=== PATIENT | female | born 1980 | race Caucasian/White ===

== ENCOUNTER 2023-06-10 17:07 | Emergency (ER) | payer OTHER ==
[2023-06-10 17:30] VITALS: TEMP 98.6; BMI 21.6
[2023-06-10 22:00] LABS: BASO % 0.6 % (0-2.0); EOS % 2.1 % (0-4.5); HEMATOCRIT 37.5 % (32.4-45.2); HEMOGLOBIN 12.7 GM/dL (10.7-15.3); LYMPH % 34.4 % (8-40); MCH 31.5 pg (25.7-33.7); MCHC 33.8 g/dl (32.0-36.0); MEAN PLT VOLUME 8.6 fl (7.5-11.1); MONO % 7.6 % (3.8-10.2); NEUT % 55.3 % (42.8-82.8); PLATELET COUNT 294 10^3/uL (134-434); RBC 4.03 M/mm3 (3.60-5.2); RDW 13.6 % (11.6-15.6); WHITE BLOOD COUNT 8.4 K/mm3 (4.0-10.0)
[2023-06-10 22:15] LABS: POTASSIUM 4.1 mmol/L (3.5-5.1)
[2023-06-10 22:16] LABS: CALCIUM 8.7 mg/dL (8.5-10.1)
[2023-06-10 22:17] LABS: ALBUMIN 3.4 g/dl (3.4-5.0); BLOOD UREA NITROGEN 9.2 mg/dL (7-18)
[2023-06-10 22:21] LABS: BILIRUBIN,TOTAL 0.3 mg/dL (0.2-1); CREATININE 0.6 mg/dL (0.55-1.3)
[2023-06-10 22:22] LABS: TOT PROT 6.5 g/dl (6.4-8.2)
[2023-06-10] MEDS ORDERED: DOXYCYCLINE HYCLATE 100 MG CAPSULE PO ONE (22:22)
[2023-06-10] MEDS: DOXYCYCLINE HYCLATE 100 MG CAPSULE PO ONE (22:45)
[2023-06-10] MEDS: CIPROFLOXACIN 250 MG TABLET (RESTRICTED TO ID) PO ONE (22:45)
[2023-06-10 22:52] VITALS: BP 114/76; PULSE 57; RESP 16
== END 2023-06-10 22:52 | disposition home or self-care (01) ==
LOC: JER 17:07
DX: S80.812A Abrasion, left lower leg, initial encounter (principal); L08.9 Local infection of the skin and subcutaneous tissue, unspecified; M79.89 Other specified soft tissue disorders; V89.2XXA Person injured in unspecified motor-vehicle accident, traffic, initial encounter
CPT/HCPCS: 36415; 73590-TC-LT-FY; 80053; 83605; 85025; 93971-TC; 99285-25